=== PATIENT | female | born 1985 | race Caucasian/White ===

== ENCOUNTER 2017-01-13 17:24 | Emergency (ER) | payer OTHER ==
[2017-01-13 17:45] LABS: BILIRUBIN NEGATIVE (NEGATIVE); BLOOD NEGATIVE Ery/uL (NEGATIVE); CLARITY CLEAR (CLEAR); COLOR YELLOW (YELLOW); GLUCOSE (U) NORMAL (NORMAL); KETONE (U) NEGATIVE (NEGATIVE); LEUKOCYTES NEGATIVE Leu/uL (NEGATIVE); NITRITE NEGATIVE (NEGATIVE); PROTEIN NEGATIVE (NEGATIVE); SPECIFIC GRAVITY >=1.030 (1.001-1.030); UROBILINOGEN 0.2 mg/dL (0.2-1.0)
[2017-01-13 17:49] LABS: BASOPHIL 0.4 % (0-2); EOSINOPHIL 1.6 % (0-5); HGB 12.8 g/dl (12.5-16.0); LYMPHOCYTE 19.2 % (15-48); MCH 31.5 pg (25.0-31.0); MCHC 33.7 g/dL (32.0-36.0); MCV 93.6 fL (78.0-100.0); MONOCYTE 15.7 % (0-12); MPV 11.7 fL (6.0-9.5); NEUTROPHIL 63.1 % (41-80); PLT 189 K/uL (150-400); RBC 4.06 M/uL (4.20-5.40); WBC 5.7 K/uL (4.0-10.5)
[2017-01-13 18:09] LABS: ALBUMIN 4.5 g/dL (3.5-5.0); BILIRUBIN - TOTAL 0.3 mg/dL (0.1-1.0); CREATININE 1.2 mg/dL (0.5-1.0); GLOBULIN (CALCULATION) 2.7 g/dL (2.2-4.2); POTASSIUM 4.1 mmol/L (3.5-5.1); TOTAL PROTEIN 7.2 g/dL (6.4-8.3)
== END 2017-01-13 21:20 | disposition home or self-care (01) ==
LOC: FER 17:24
PROVIDERS: Emergency Medicine
DX: M94.0 Chondrocostal junction syndrome [Tietze] (principal); M25.512 Pain in left shoulder; F41.9 Anxiety disorder, unspecified; Z79.899 Other long term (current) drug therapy; Z88.1 Allergy status to other antibiotic agents
CPT/HCPCS: 36415; 71020; 80053; 81003; 82150; 83690; 85025; 85379; J1885